=== PATIENT | male | born 1950 | race Caucasian/White ===

== ENCOUNTER 2019-01-18 07:30 | Day surgery (SDC) | payer OTHER ==
[2019-01-15 17:51] VITALS: BMI 28.1
[2019-01-18] MEDS ORDERED: MIDAZOLAM HCL 2 MG/2 ML SINGLE DOSE VIAL ONE (09:00)
[2019-01-18] MEDS ORDERED: PROPOFOL 20 ML ONE ×2 (09:00)
[2019-01-18] MEDS ORDERED: LIDOCAINE HCL/PF 2% SDV 5ML VIAL ONE (09:00)
[2019-01-18] MEDS ORDERED: ceFAZolin SODIUM 1 GM VIAL IVPB ONE (09:13)
[2019-01-18] MEDS ORDERED: ceFAZolin SODIUM 1 GM VIAL ONE (09:15)
[2019-01-18] MEDS ORDERED: DEXAMETHASONE SOD PHOSPHATE 4 MG/1 ML VIAL ONE (09:15)
[2019-01-18] MEDS ORDERED: SEVOFLURANE 250 ML BTL ONE (09:15)
[2019-01-18] MEDS ORDERED: KETOROLAC TROMETHAMINE 30 MG/1 ML VIAL ONE (09:39)
[2019-01-18] MEDS ORDERED: ACETAMINOPHEN 325 MG TABLET (FP) PO PRN (10:11)
[2019-01-18] MEDS ORDERED: oxyCODONE HCL 5 MG TABLET PO PRN (10:13)
[2019-01-18] MEDS ORDERED: ONDANSETRON 4 MG/2 ML VIAL IVPUSH PRN (10:13)
[2019-01-18] MEDS ORDERED: ACETAMINOPHEN 500 MG TABLET (FP) PO PRN (10:13)
[2019-01-18] MEDS ORDERED: LACTATED RINGERS SOLUTION 1,000 ML IV SCH (10:15)
--- NOTE | 2019-01-18 11:19 | OP ---
DATE OF OPERATION: 01/18/2019 PREOPERATIVE DIAGNOSIS: Benign prostatic hypertrophy. POSTOPERATIVE DIAGNOSIS: Benign prostatic hypertrophy. OPERATIVE PROCEDURE: Transurethral resection and transurethral vaporization of the prostate. ANESTHESIA: General. DESCRIPTION OF PROCEDURE: Under above-stated anesthesia, patient is prepped and draped in the usual sterile manner. He is placed in the dorsal lithotomy position. Cystoscopy revealed trilobar hypertrophy of the prostate. There was a grade 3 trabeculation of the bladder. No lesions were seen. No calculi were noted. Ureteral orifices were within normal limits with efflux of clear urine. A bipolar resectoscope was inserted. Resection of the prostate commenced in the usual fashion. Excess tissue was vaporized with a VaporTrode. Prostate tissue was evacuated with an EllPECO Pallet evacuator. No active bleeding was noted. A 24-Polish 3-way 30-mL Walters catheter was inserted. This was connected to continuous bladder irrigation. The patient tolerated the procedure well. He returned to the recovery room in good condition. Jack [id number]
[2019-01-18] MEDS ORDERED: ACETAMINOPHEN INJECTION 100 ML IVPB ONE (11:20)
--- NOTE | 2019-01-18 12:13 | CONS ---
DATE OF CONSULTATION: DATE OF DICTATION: 01/18/2019 HISTORY: Patient is a 68-year-old male admitted for ambulatory cystourethroscopy and transurethral resection vaporization of the prostate. He has had history of frequency, urgency, terminal dribbling, and hesitancy. Residual urines have been ranging between 150-180 mL. The patient was placed on maximum doses of alpha blockers without any success. His IPSS is 21. He also has history of high blood pressure as well as dyslipidemia. He is diagnosed as a prediabetic. He denies any other significant history. PHYSICAL EXAMINATION: General: A well-developed, adult male in no apparent distress. Chest: Clear. Heart: Regular. Abdomen: Soft. There is no CVA tenderness. Genitourinary: Genitalia are atraumatic. Testes are normal in size and consistency. No hernias or hydroceles are elicited. Prostate is 3+, smooth, nontender. The patient has a medical clearance. He is on niacin, atenolol, a statin, enalapril, ProAir, Norvasc, Nexium, Symbicort. His chest x-ray was normal. EKG was also normal. Patient is cleared for the proposed procedure. All side effects and complications were explained fully to patient and patient's , and he agrees. Jack [id number]
[2019-01-18 13:27] VITALS: TEMP 97.9
[2019-01-18] MEDS ORDERED: oxyCODONE HCL 5 MG TABLET PO ONE (14:05)
[2019-01-18] MEDS ORDERED: oxyCODONE HCL 5 MG TABLET ONE (14:09)
[2019-01-18 14:38] VITALS: BP 127/83; PULSE 72
--- NOTE | 2019-01-21 16:13 | PATH ---
Surgical Pathology Report Patient Name: MAXI CHOUDHURY [facility]. Rec. #: [id number] /Age/Gender: 1950 (Age: 68) / M Account: [id number] Location: [facility] SUR[facility] Taken: 01/18/2019 Received: 01/18/2019 Reported: 01/19/2019 Physicians: Felicity Camarillo M.D. Specimen(s) Received PROSTATE CHIPS Clinical History Benign prostate hyperplasia Final Diagnosis PROSTATE CHIPS, TRANSURETHRAL RESECTION OF PROSTATE: BENIGN PROSTATIC TISSUE WITH GLANDULAR AND STROMAL HYPERPLASIA, CHRONIC PROSTATITIS. Electronically Signed Sven Ortiz M.D. Gross Description Received in formalin labeled "prostate chips", are multiple irregular martins soft tissue weighing 3 g. The specimen is entirely submitted 4 cassettes KWS/01/18/2019 sulgustavo/01/18/2019
--- NOTE | 2019-01-22 18:10 | PATH ---
Cytology Non-Gynecological Report Patient Name: MAXI CHOUDHURY [facility]. Rec. #: [id number] /Age/Gender: 1950 (Age: 68) / M Account: [id number] Location: [facility] Taken: 01/18/2019 Received: 01/18/2019 Reported: 01/22/2019 Physicians: Felicity Camarillo M.D. Specimen(s) Received URINE VOIDED Clinical History Abnormal FISH Final Diagnosis URINE FOR CYTOLOGY: SATISFACTORY FOR EVALUATION. ATYPICAL UROTHELIAL CELLS. RARE ATYPICAL UROTHELIAL CELLS WITH MILD INCREASE IN NUCLEUS TO CYTOPLASMIC RATIO AND MILD NUCLEAR IRREGULARITY. SQUAMOUS EPITHELIAL CELLS PRESENT. NUMEROUS RED BLOOD CELLS PRESENT. Comment: See concurrent biopsy ([id number]). Electronically Signed Yu Walker M.D. Gross Description Approximately 100 cc of yellow fluid received fresh. Three cytofunnels prepared and Pap stained. Cell block is prepared.
== END 2019-01-18 14:44 | disposition home or self-care (01) ==
LOC: JASU-SURG 07:30
PROVIDERS: ATTEND Urology
PROC: 0V508ZZ Destruction of Prostate, Via Natural or Artificial Opening Endoscopic (ICD-10-PCS; principal; 2019-01-18 09:00)
DX: N40.1 Benign prostatic hyperplasia with lower urinary tract symptoms (principal); R35.0 Frequency of micturition; R39.15 Urgency of urination; I10 Essential (primary) hypertension; K21.9 Gastro-esophageal reflux disease without esophagitis; E66.9 Obesity, unspecified; G47.30 Sleep apnea, unspecified
CPT/HCPCS: 87086; 88108; 88305-TC; 94760; J0131

== ENCOUNTER 2022-01-03 11:23 | Inpatient (IN) | payer OTHER ==
[2022-01-03 11:36] VITALS: BMI 27.3
[2022-01-03 12:59] LABS: BASO % 0.2 % (0-2.0); HEMATOCRIT 43.6 % (35.4-49); HEMOGLOBIN 15.1 GM/dL (11.7-16.9); LYMPH % 12.9 % (8-40); MCH 30.7 pg (25.7-33.7); MCHC 34.6 g/dl (32.0-35.9); MEAN CELL VOLUME 88.9 fl (80-96); MEAN PLT VOLUME 6.9 fl (7.5-11.1); MONO % 9.2 % (3.8-10.2); NEUT % 77.7 % (42.8-82.8); PLATELET COUNT 356 10^3/uL (134-434); RDW 14.1 % (11.9-15.9); WHITE BLOOD COUNT 11.3 K/mm3 (4.0-10.0)
[2022-01-03 13:12] LABS: ACTIVATED PTT 27.5 SECONDS (25.2-36.5); INR 1.04 (0.83-1.09)
[2022-01-03 13:27] LABS: CALCIUM 10.1 mg/dL (8.5-10.1)
[2022-01-03 13:28] LABS: ALBUMIN 4.4 g/dl (3.4-5.0); BLOOD UREA NITROGEN 14.3 mg/dL (7-18)
[2022-01-03 13:33] LABS: TOT PROT 8.3 g/dl (6.4-8.2)
[2022-01-03 13:34] LABS: BILIRUBIN,TOTAL 0.5 mg/dL (0.2-1)
[2022-01-03 15:10] LABS: URINE APPEARANCE CLEAR; URINE BILIRUBIN NEGATIVE (NEGATIVE); URINE COLOR YELLOW; URINE GLUCOSE (UA) TRACE (NEGATIVE); URINE KETONE NEGATIVE (NEGATIVE); URINE LEUK ESTERASE NEGATIVE (NEGATIVE); URINE NITRITE NEGATIVE (NEGATIVE); URINE PROTEIN NEGATIVE (NEGATIVE); URINE UROBILINOGEN 0.2 mg/dL (0.2-1.0)
[2022-01-03] MEDS ORDERED: PANTOPRAZOLE 40 MG TABLET PO SCH (15:30)
[2022-01-03 17:46] VITALS: TEMP 97.1
[2022-01-03] MEDS ORDERED: ENALAPRIL MALEATE 5 MG TABLET ONE (21:11)
[2022-01-03] MEDS ORDERED: ATORVASTATIN CA 20 MG TABLET (FP) ONE (21:11)
[2022-01-03] MEDS ORDERED: ENALAPRIL MALEATE 5 MG TABLET PO SCH (22:00)
[2022-01-03] MEDS ORDERED: ATORVASTATIN CA 20 MG TABLET (FP) PO SCH (22:00)
[2022-01-04 06:53] VITALS: BP 172/102; PULSE 84; RESP 16
[2022-01-04] MEDS ORDERED: ENALAPRIL MALEATE 10 MG TABLET PO SCH (07:16)
[2022-01-04] MEDS ORDERED: CLOPIDOGREL BISULFATE 75 MG TABLET (FP) PO SCH (07:17)
[2022-01-04] MEDS ORDERED: ASPIRIN COATED 81 MG TABLET.EC PO SCH (07:17)
[2022-01-04] MEDS ORDERED: ENALAPRIL MALEATE 10 MG TABLET PO ONE (07:30)
[2022-01-04] MEDS ORDERED: ATENOLOL 25 MG TABLET (FP) PO SCH (10:00)
[2022-01-04] MEDS ORDERED: amLODIPine BESYLATE 10 MG TABLET (FP) PO SCH (10:00)
== END 2022-01-03 22:45 | disposition short-term general hospital (02) | DRG 65 ==
LOC: JER 11:23 → JERBED 13:39
PROVIDERS: ADMIT Internal Medicine; ATTEND Internal Medicine
DX: I63.89 Other cerebral infarction (principal); G81.94 Hemiplegia, unspecified affecting left nondominant side; I10 Essential (primary) hypertension; E78.5 Hyperlipidemia, unspecified; E11.9 Type 2 diabetes mellitus without complications; K21.9 Gastro-esophageal reflux disease without esophagitis; N40.0 Benign prostatic hyperplasia without lower urinary tract symptoms; R29.703 NIHSS score 3; R26.81 Unsteadiness on feet; R20.2 Paresthesia of skin; D72.829 Elevated white blood cell count, unspecified
CPT/HCPCS: 36415; 70450-TC; 70544-TC; 70551-TC; 80053; 80061; 81003; 82550; 82962; 83036; 84484; 85025; 85610; 85730; 86850; 86900; 86901; 93005; 93010; 99285-25; C9803-CS; U0003; U0005

== ENCOUNTER 2023-05-22 06:52 | Day surgery (SDC) | payer OTHER ==
[2023-05-15 15:44] VITALS: BMI 23.4
[2023-05-22] MEDS ORDERED: MIDAZOLAM HCL 2 MG/2 ML SINGLE DOSE VIAL ONE (08:47)
[2023-05-22] MEDS ORDERED: ACETAMINOPHEN INJECTION 100 ML IVPB ONE (08:48)
[2023-05-22] MEDS ORDERED: PROPOFOL 60 ML ONE (08:53)
[2023-05-22] MEDS ORDERED: PROPOFOL 20 ML ONE (10:03)
[2023-05-22] MEDS ORDERED: ONDANSETRON 4 MG/2 ML VIAL IVPUSH PRN (11:02)
[2023-05-22] MEDS ORDERED: oxyCODONE HCL 5 MG TABLET PO PRN (11:02)
[2023-05-22] MEDS ORDERED: LACTATED RINGERS SOLUTION 1,000 ML IV SCH (11:15)
[2023-05-22 11:24] VITALS: TEMP 97.4
[2023-05-22 13:36] VITALS: RESP 16
[2023-05-22 13:51] VITALS: BP 114/69; PULSE 62
== END 2023-05-22 13:25 | disposition home or self-care (01) ==
LOC: FASU 06:52
PROVIDERS: ATTEND Orthopaedic Surgery
PROC: 0RNJ4ZZ Release Right Shoulder Joint, Percutaneous Endoscopic Approach (ICD-10-PCS; 2023-05-22)
PROC: 0RQJ4ZZ Repair Right Shoulder Joint, Percutaneous Endoscopic Approach (ICD-10-PCS; 2023-05-22)
PROC: 0LB14ZZ Excision of Right Shoulder Tendon, Percutaneous Endoscopic Approach (ICD-10-PCS; principal; 2023-05-22 10:06)
DX: M75.121 Complete rotator cuff tear or rupture of right shoulder, not specified as traumatic (principal); M75.01 Adhesive capsulitis of right shoulder; M75.41 Impingement syndrome of right shoulder; M25.811 Other specified joint disorders, right shoulder; S43.431A Superior glenoid labrum lesion of right shoulder, initial encounter; X58.XXXA Exposure to other specified factors, initial encounter; Y93.89 Activity, other specified; Y92.9 Unspecified place or not applicable
CPT/HCPCS: 29807; 29823; 29826; 29827; C9781; 82962; 94760; C1713; C1889; J0131

== ENCOUNTER 2024-11-11 08:57 | Day surgery (SDC) | payer OTHER ==
[2024-11-09 12:40] VITALS: BMI 24.9
[~2024-11-11 08:57] MED LIST: ACETAMINOPHEN 500 MG TABLET (FP) PO PRN
[2024-11-11] MEDS: DEXAMETHASONE SOD PHOSPHATE 10 MG/1 ML VIAL IVPUSH ONE ×3 (10:38)
[2024-11-11] MEDS: LIDOCAINE HCL 1% PRESERVATIVE FREE - 30ML VIAL IJ ONE ×3 (10:38)
[2024-11-11] MEDS: IOHEXOL 180 MG/1 ML ML IJ ONE ×2 (10:38)
[2024-11-11 13:28] VITALS: BP 126/76; PULSE 60; RESP 18; TEMP 97.8
== END 2024-11-11 11:15 | disposition home or self-care (01) ==
LOC: JASU-SURG 08:57
PROVIDERS: ATTEND Pain Medicine Pain Medicine
PROC: 3E0R3BZ Introduction of Anesthetic Agent into Spinal Canal, Percutaneous Approach (ICD-10-PCS; 2024-11-11)
PROC: 3E0R33Z Introduction of Anti-inflammatory into Spinal Canal, Percutaneous Approach (ICD-10-PCS; principal; 2024-11-11 10:15)
DX: M48.061 Spinal stenosis, lumbar region without neurogenic claudication (principal); M54.16 Radiculopathy, lumbar region
CPT/HCPCS: 76000-TC-FY; J1100